=== PATIENT | female | born 2000 | race Caucasian/White ===

== ENCOUNTER → 2024-10-14 09:56 | Outpatient (REF) | payer BC, SELFPAY | LOC: HWRAD 09:56 | PROVIDERS: ATTENDING PHYSICIAN Family Medicine | DX: R10.30 Lower abdominal pain, unspecified (principal) | CPT/HCPCS: 76770 ==

== ENCOUNTER 2025-01-09 08:34 | Emergency (ER) | payer BC, SELFPAY ==
[2025-01-09 08:37] VITALS: BP 112/75
--- NOTE | 2025-01-09 09:54 | ED.GENMED ---
History of Present Illness
General
Chief Complaint: Fainting/Passed Out
Source: patient and family (Mother at bedside)
Exam Limitations: none
Time Seen by Provider: 01/09/25 09:33
Nursing documentation reviewed up to this point in time: agreed with
History of Present Illness
History of Present Illness:
24-year-old female with history of anxiety, on Pristiq, chronic stomach problems, binge drinking, ADD presents for syncopal episode. 8 a.m. was taking dog down 3 steps at home, dad waiting at bottom, when she fainted. Remembers feeling herself hit
her head, next thing she recalls is her parents calling her name and getting her up. She was able to walk to sit down but mom says she was 'slurring her words and groggy' for about 20 minutes after, 'like she was drunk.'
Pt did go out last night, between 8p-12a had 3 beers (she is purposefully limiting her ETOH intake), denies recreational drugs. Denies headache, denies prodrome, denies n/v/d/c. Denies CP or SOB, abdominal pain.
She has a lump on left lower occiput and laceration behind left ear. She feels 'fine' now.
Past History
Past History
ED Past Medical History: Psychiatric (ADD takes medication intermittently, did take it yesterday. Anxiety/depression takes Pristiq)
ED Past Surgical History: Orthopedic (spinal fusion)
Social History
Tobacco: Non-smoker
Alcohol: Occasional
Drug: None
Personal: Single
Living: with family
Employment: Student
Review of Systems
Review of Systems
Allergies reviewed?: Yes
All Other Systems: ROS reviewed and negative except as documented in HPI and ROS
Constitutional: Denies fever or fatigue
EENT: Denies sore throat
Respiratory: Denies trouble breathing
Cardiac: Reports syncope; Denies chest pain, diaphoresis or palpitations
ABD/GI: Denies abdominal pain, nausea, vomiting, diarrhea or anorexia
: Denies dysuria, frequency or difficulty voiding
Musculoskeletal: Reports no symptoms
Skin: Reports other (Cut behind left ear)
Neurological: Reports no symptoms
Phy Exam
Physical Exam
Physical Exam:
GENERAL: No acute distress. A&Ox3.
CONSTITUTIONAL: Afebrile.
Head: Mild swelling and tenderness left side base of skull
EYES: clear, conjunctivae normal
ENMT: moist mucus membranes, Pharynx nl
RESPIRATORY: Regular respirations, nonlabored, lungs clear.
CARDIOVASCULAR: Regular rate and rhythm, no murmurs, no rubs.
GI: Soft, nontender, normal BS
MUSCULOSKELETAL: Moves with ease. Well perfused.
SKIN: Warm, dry, pink, left posterior ear laceration
PSYCH: Normal mood and affect. Well kept, interactive and appropriate
NEUROLOGIC: Awake, alert and oriented. Speech clear. Cranial nerves II through XII intact. [id number] intact. No focal neurological deficits
Course
Orders/Labs/Results
Orders:
Orders
01/09/25 08:40
Electrocardiogram (*1) Urgent
Reason for Study: Syncope
EKG- Treatment ONCE
01/09/25 09:35
Test Result ONCE
01/09/25 09:50
Basic Metabolic Panel Urgent
Complete Blood Count/With Diff Urgent
HCG, Serum Qualitative Screen Urgent
01/09/25 09:54
0.9% Sodium Chloride 1000 ml [Nss] 1,000 ml IV BOLUS
01/09/25 09:58
Free T4 Urgent
TSH Reflex To Free T4 Urgent
01/09/25 10:23
Fentanyl, Urine Urgent
Urinalysis Reflex To Culture Urgent
Date Specimen was Collected: 01/09/25
Time Specimen was Collected: 10:22
Urine Drug Abuse Screen Urgent
Date Specimen was Collected: 01/09/25
Time Specimen was Collected: 10:22
Urine Microscopic Reflex Cult Urgent
01/09/25 11:25
Orthostatic VS- Treatment ONCE
Abnormal Lab Results
01/09/25 01/09/25 01/09/25
09:50 09:58 10:23
BUN 4 L mg/dl
(7-17)
TSH (Reflex) 4.94 H uIU/ml
(0.47-4.68)
Urine Bacteria (Reflex) Few A
(Negative)
Urine Albumin (Reflex) 1+ A
(Neg - Trace)
Ur Amphetamines Screen Positive H
(Negative)
01/09/25 09:50
01/09/25 09:50
Vital Signs
Initial and Last Documented VS:
Initial Vital Signs
Temp Pulse Resp BP Pulse Ox
98.4 F 101 18 112/75 100
01/09/25 08:37 01/09/25 08:37 01/09/25 08:37 01/09/25 08:37 01/09/25 08:37
Last Documented Vital Signs
Temp Pulse Resp BP Pulse Ox
98.4 F 101 18 112/75 100
01/09/25 08:37 01/09/25 08:37 01/09/25 08:37 01/09/25 08:37 01/09/25 08:37
MDM/Problems Addressed
Differential Diagnosis Includes:
dehydration, hypoglycemia, orthostatic hypotension
MDM/Problems Addressed:
24-year-old female with history of anxiety, on Pristiq, chronic stomach problems, binge drinking, ADD presents for syncopal episode. 8 a.m. was taking dog down 3 steps at home, dad waiting at bottom, when she fainted. Remembers feeling herself hit
her head, next thing she recalls is her parents calling her name and getting her up. She was able to walk to sit down but mom says she was 'slurring her words and groggy' for about 20 minutes after, 'like she was drunk.'
Pt did go out last night, between 8p-12a had 3 beers (she is purposefully limiting her ETOH intake), denies recreational drugs. Denies headache, denies prodrome, denies n/v/d/c. Denies CP or SOB, abdominal pain.
She has a lump on left lower occiput and laceration behind left ear. She feels 'fine' now.
Afebrile NAD
EKG NSR
11:00 AM
CBC normal
CMP normal
TSH minimally elevated at 4.94, patient has a history of abnormal TSH
UA negative
UDS: Neg save for +amphetamines ( she took her ADD med yesterday)
11:20 a.m.
Nothing worrisome in workup
Orthostatics neg
Pt stable for discharge
She will f/u with PCP
Pt ambulated out with normal gait at discharge
*Critical Care Note
Total Time (30-74mins, 75-104mins- exclusive of procedures): Not Applicable
ED Attending Note
-
Portions of this chart may have been created with voice recognition software.� Occasional wrong word or��sound alike� substitutions may have occurred due to the inherent limitations of voice recognition software.
Discharge Plan
Departure
Patient Disposition: Home (Routine Discharge)
Date of Disposition: 01/09/25
Time of Disposition: 11:34
Patient with high blood pressure during this ER visit?: No
Condition: Good
Discharge Problem:
Fainting spell, Laceration of scalp, Minor head injury
Instructions: Head injury in adults, Syncope (Fainting) (DC), Laceration Repair With Glue ED
Prescriptions:
No Action
rabies vacc,human diploid (PF) [Imovax Rabies Vaccine (PF)] 1 ML recon soln
1 ml IM . DIRECTED Qty: 3 0RF
Rx Instructions:
See Rabies Vaccine Post Exposure Prophylaxis Instruction Sheet for Dosing Instructions
Referrals:
Islip,Chela, PA [Family Provider] - Call in 1-3 days for appt
Activity Restrictions/Additional Instructions:
As we discussed, there is nothing worrisome in your workup here today.
A good [employer]ER exam is a good idea since you haven't been in a while.
Your thyroid study is minimally abnormal. Discuss with your PCP. Call PCP and make appointment for follow up in 5-7 days.
You may briefly wet the glued area in the shower, just don't rub it or apply any ointment for 7 days. The glue should slough off within 2 weeks.
Seek medical care immediately for vomiting more than 2 times in one hour, confusion, headache that gets worse and worse despite Tylenol
Interventions
Interventions:
*Risk Screen - Suicide Last Done: 01/09/25 08:37
*General Assessment Last Done: 01/09/25 08:37
*Neglect/Abuse Screening Last Done: 01/09/25 08:37
ED- Fall Risk Assessment Last Done: 01/09/25 10:01
*Nursing Disposition Last Done: 01/09/25 11:53
ED- Cardiac Assessment Last Done: 01/09/25 10:01
ED- Neurological Assessment Last Done: 01/09/25 10:01
Discharge Date and Time
Discharge Date/Time: 01/09/25 11:56
Print Language: SPANISH
[2025-01-09 09:56] VITALS: BMI 20.2
[2025-01-09] MEDS: NSS 1000 IV (09:57)
[2025-01-09 10:07] LABS: % Basophils 0.5 % (0-2); % Immature Granulocytes 0.2 % (0-0.5); % Lymphocytes 26.9 % (20.5-51.1); % Monocytes 6.7 % (1.7-9.3); % Neutrophils 64.7 % (42.2-75.2); Absolute Eosinophils 0.1 10^3/uL (0-0.7); Absolute Lymphocytes 1.6 10^3/uL (1.2-3.4); Absolute Monocytes 0.4 10^3/uL (0.1-0.6); Absolute Neutrophils 3.8 10^3/uL (1.4-6.5); Hemoglobin 12.9 g/dL (12.0-16.0); Mean Corp Hgb Conc. 34.9 g/dL (33.0-37.0); Mean Corpuscular Hgb 30.5 pg (27.0-31.0); Mean Corpuscular Volume 87.5 fL (81.0-99.0); Mean Platelet Volume 8.6 fL (7.4-10.4); Nucleated Red Blood Cells % 0 %; Platelet Count 298 10^3/uL (130-400); Red Blood Cell Count 4.23 10^6/uL (4.20-5.40); Red Cell Dist. Width 11.9 % (11.5-14.5); White Blood Cell Count 5.8 10^3/uL (4.8-10.8)
[2025-01-09 10:17] LABS: HCG, Serum Qualitative Screen Negative
[2025-01-09 10:31] LABS: Blood Urea Nitrogen 4 mg/dl (7-17); Calcium 9.2 mg/dl (8.4-10.2); Carbon Dioxide 23 mmol/L (22-30); Chloride 103 mmol/L (98-107); Estimated Creatinine Clearance > 125 ml/min; Glucose 89 mg/dl (70-99); Sodium 138 mmol/L (135-145); eGFR > 60.00
[2025-01-09 10:48] LABS: Urine Albumin 1+ (Neg - Trace); Urine Bilirubin Negative (Negative); Urine Character Clear (Clear); Urine Color Yellow; Urine Glucose Negative (Negative); Urine Ketone Negative (Negative); Urine Leukocyte Negative (Negative); Urine Nitrite Negative (Negative); Urine Occult Blood Negative (Negative); Urine Specific Gravity 1.005 (<1.030); Urine Urobilinogen Negative (Neg - 1+)
[2025-01-09 10:50] LABS: TSH Reflex To Free T4 4.94 uIU/ml (0.47-4.68)
[2025-01-09 11:08] LABS: Amphetamines Positive (Negative); Barbiturates Negative (Negative); Benzodiazepines Negative (Negative); Buprenorphine Negative (Negative); Cocaine Negative (Negative); Marijuana Negative (Negative); Methadone Negative (Negative); Methamphetamines Negative (Negative); Opiates Negative (Negative); Phencyclidine Negative (Negative); Tricyclic Antidepressants Negative (Negative)
[2025-01-09 11:20] LABS: Free T4 1.44 ng/dl (0.78-2.19)
[2025-01-09 11:29] LABS: Fentanyl, Urine Negative (Negative); Urine Bacteria Few (Negative); Urine Red Blood Cell 0-2 /HPF (0-2); Urine Squamous Cell 16-20 /LPF (Few)
[2025-01-09 11:55] VITALS: BP 107/59; BP 108/52; BP 97/61; PULSE 106; PULSE 78; PULSE 82
== END 2025-01-09 11:56 | disposition home or self-care (01) ==
LOC: EMR 08:34
PROVIDERS: Registered Nurse; EMERGENCY PHYSICIAN Emergency Medicine; FAMILY PHYSICIAN Physician Assistant Medical
DX: R55 Syncope and collapse (principal); S01.01XA Laceration without foreign body of scalp, initial encounter; S01.312A Laceration without foreign body of left ear, initial encounter; W19.XXXA Unspecified fall, initial encounter; F41.9 Anxiety disorder, unspecified; F98.8 Other specified behavioral and emotional disorders with onset usually occurring in childhood and adolescence; Z98.1 Arthrodesis status
CPT/HCPCS: 99283; 80048; 80306; 80307; 81003; 81015; 84439; 84443; 84703; 85025; 93005